=== PATIENT | male | born 1965 | race Two or more races ===

== ENCOUNTER 2018-10-19 22:30 | Emergency (ER) | payer OTHER ==
[~2018-10-19] VITALS: Ht 152.4 cm; Wt 68.0 kg
--- NOTE | 2018-10-19 22:35 | NUR ---
PT [id number] FROM [address] FOR ETOH. PT IS AAOX0, NOT IN RESPIRATORY DISTRESS, V/S STABLE, KEPT RESTED AND COMFORTABLE, WILL CONTINUE TO MONITOR.
--- NOTE | 2018-10-20 01:38 | NUR ---
SEEN AND EXAMINED BY DR. SEBASTIAN.
[2018-10-20] MEDS ORDERED: IV NS 0.9% 1,000 ML BAG IV ONE (02:00)
--- NOTE | 2018-10-20 02:10 | NUR ---
UNABLE TO ESTABLISHED IV ACCESS DR. SEBASTIAN AWARE.
--- NOTE | 2018-10-20 02:53 | NUR ---
TECH AT BEDSIDE FOR US.
--- NOTE | 2018-10-20 03:10 | NUR ---
AT BEDSIDE FOR IV INSERTION AND BLOOD DRAW.
--- NOTE | 2018-10-20 03:18 | NUR ---
BLOOD DRAWNED AND SENT TO LAB.
[2018-10-20 03:23] LABS: BASOPHILS # (AUTO) 0.2 /CMM (0.0-0.2); BASOPHILS % (AUTO) 4.7 % (0.0-2.0); EOSINOPHILS % (AUTO) 1.2 % (0.0-6.0); HEMATOCRIT 33 % (39-51); LYMPHOCYTES # (AUTO) 1.9 /CMM (0.8-4.8); LYMPHOCYTES % (AUTO) 53.8 % (20.0-44.0); MEAN CORPUSCULAR HGB CONC 34 g/dl (31.0-36.0); MEAN CORPUSCULAR VOLUME 88 fL (80-96); MONOCYTES # (AUTO) 0.2 /CMM (0.1-1.30); MONOCYTES % (AUTO) 4.8 % (2.0-12.0); NEUTROPHILS # (AUTO) 1.3 /CMM (1.8-8.9); NEUTROPHILS % (AUTO) 35.5 % (43.0-81.0); PLATELET COUNT (AUTO) 201 /CMM (150-450); RED BLOOD CELL COUNT(AUTO) 3.74 MIL/uL (4.5-6.0); WHITE BLOOD COUNT (AUTO) 3.5 K/uL (4.3-11.0)
--- NOTE | 2018-10-20 03:26 | NUR ---
URINE SPECIMEN COLLECTED AND SENT TO LAB.
--- NOTE | 2018-10-20 03:26 | NUR ---
PT WHEELED TO CT SCAN VIA [employer]
[2018-10-20] MEDS ORDERED: CEFTRIAXONE 1 G VIAL IM ONE (03:30)
[2018-10-20] MEDS ORDERED: LIDOCAINE /MPF 1% VIAL 5 ML VIAL ONE (03:54)
[2018-10-20] MEDS ORDERED: CEFTRIAXONE 500 MG VIAL ONE (03:54)
[2018-10-20 03:55] LABS: CALCIUM, SERUM 7.9 mg/dL (8.5-10.1); CREATININE 0.4 mg/dL (0.6-1.3); POTASSIUM 3.6 mmol/L (3.5-5.1)
[2018-10-20 04:01] LABS: ALBUMIN 2.9 g/dL (3.4-5.0); BILIRUBIN,DIRECT 0.2 mg/dL (0.0-0.2); BILIRUBIN,TOTAL 0.5 mg/dL (0.2-1.0); TOTAL PROTEIN, SERUM 7.1 g/dL (6.4-8.2)
[2018-10-20] MEDS ORDERED: THIAMINE HCL 100 MG TABLET ONE (11:29)
[2018-10-20] MEDS ORDERED: THIAMINE HCL 100 MG TABLET PO ONE (11:30)
[2018-10-20] MEDS ORDERED: IV NS 0.9% 1,000 ML IV ONE (11:30)
[2018-10-20] MEDS ORDERED: VANCOMYCIN 1 GM in IV D5W 250 ML IV ONE (11:30)
--- NOTE | 2018-10-20 11:45 | NUR ---
ASSUMED CARE FOR THIS PT, PER REPORT FROM PREVIOUS NURSE, MIDLINE/PICCLINE NURSE WAS PAGED D/T UNABLE TO SECURE A PIV. STARTED 22G R WRIST, PATENT AND INTACT, FLUSHING WELL. MADE AWARE.
[2018-10-20 12:38] VITALS: BP 121/79
--- NOTE | 2018-10-20 13:09 | NUR ---
[facility] AUTH TO ADMIT PT HERE RECEIVED
--- NOTE | 2018-10-20 13:12 | NUR ---
NURSING SUP AWARE OF BED REQUEST
--- NOTE | 2018-10-20 13:34 | NUR ---
[facility] LEFT LEG CELLULITIS ANDONIAN ACCEPTING.
--- NOTE | 2018-10-20 13:50 | NUR ---
REPORT GIVEN FOR GERTRUDE, PT WILL BE TRANSPORTED TO 3RD FLOOR VIA [facility] WITH TRANSPORT.
[2018-10-20] MEDS ORDERED: HYDROCODONE/APAP 5/325MG 1 EACH TABLET PO PRN (14:00)
[2018-10-20] MEDS ORDERED: ONDANSETRON HCL/PF 4 MG/2 ML VIAL IVP PRN (14:00)
[2018-10-20] MEDS ORDERED: Thiamine 100 MG in IV D5W 50 ML IV SCH (14:00)
[2018-10-20] MEDS ORDERED: Folic acid 1 MG in IV D5W 50 ML IV SCH (14:00)
[2018-10-20] MEDS ORDERED: MVI-12 10ML IV ONE (14:00)
[2018-10-20] MEDS ORDERED: ZOLPIDEM TARTRATE 5 MG TABLET PO PRN (14:00)
[2018-10-20] MEDS ORDERED: MAG HYDROX/AL HYDROX/SIMETH 30 ML UDC PO PRN (14:00)
[2018-10-20] MEDS ORDERED: Z GUARD REMEDY 2 OZ OINT TP PRN (14:00)
[2018-10-20] MEDS ORDERED: ACETAMINOPHEN 325 MG TABLET PO PRN (14:00)
[2018-10-20] MEDS ORDERED: MAGNESIUM HYDROXIDE 30 ML UDC PO PRN (14:00)
[2018-10-20] MEDS ORDERED: MVI ADULT 10ML VIAL = 1AMP 10 ML in IV NS 0.9% 1,000 ML IV ONE (14:30)
--- NOTE | 2018-10-20 14:31 | NUR ---
PT PULLED OUT PIV ON R WRIST, PER PT, HE DOES NOT WANT TO STAY IN HOSPITAL, ATTEMPTED TO ASK CONVINCE PT TO STAY, REFUSED. PT REFUSED TO SIGN ANY AMA PAPERWORK. PT ELOPED FROM EMERGENCY DEPT.
[2018-10-20] MEDS ORDERED: FEE PK DOSING 1 MIN EA MC ONE (14:34)
[2018-10-20] MEDS ORDERED: VANCOMYCIN 1 GM in IV D5W 250 ML IV SCH (20:00)
[2018-10-21] MEDS ORDERED: IV NS 0.9% 1,000 ML IV PRN
== END 2018-10-20 14:36 | disposition left against medical advice (07) ==
LOC: ER 22:35 → EDBD 22:35 → MED 10-20 14:12 → UNDOADMIN 10-20 14:12
DX: F10.129 Alcohol abuse with intoxication, unspecified (principal); L03.116 Cellulitis of left lower limb; Z59.0 Homelessness; Y90.9 Presence of alcohol in blood, level not specified
CPT/HCPCS: 36415; 70450; 71045; 72125; 72170; 73590; 80048; 80076; 80305; 80307; 83605; 85025; 85730; 87040 ×2; 87077; 87186; 93971; 96365; 96372; 99284; J0696; J3370 ×2; J3411; J3490 ×2; J7030 ×2; J7060 ×4; G0480